=== PATIENT | female | born 1985 | race Caucasian/White ===

== ENCOUNTER 2018-01-05 15:14 | Observation (INO) ==
[2018-01-05] MEDS ORDERED: Acetaminophen 325 MG Tablet PO PRN (20:36)
[2018-01-05] MEDS ORDERED: Temazepam 15 MG Capsule PO PRN (20:36)
[2018-01-05] MEDS: Sod Chloride 0.9% Inj 1,000 ML IV.CONT SCH (21:22)
[2018-01-05 22:55] LABS: Reticulocyte Percent 4.1 % (0.4-3.0)
[2018-01-05 23:02] LABS: % Iron Saturation 3.1 % (20-50); Haptoglobin 116 mg/dL (30-200); Iron 11 mcg/dL (50-170); Lactate Dehydrogenase 106 U/L (84-246); Total Iron Binding Capacity 351 mcg/dL (250-450)
[2018-01-05 23:27] LABS: Ferritin 2 ng/mL (8-252); Vitamin B12 294 pg/mL (193-986)
[2018-01-06 09:21] LABS: Hematocrit 25.6 % (35.0-46.0); Hemoglobin 8.4 gm/dL (11.6-15.3)
--- NOTE | 2018-01-06 10:49 | P.HP ---
History of Present Illness Service: medicine Primary Care Physician: No Primary Care Physician Chief Complaint: vaginal bleeding History of Present Illness: 32 y/o female normally in good health states that she had her menses aprox 2 weeks ago. At the time her flow was increased and she had to change her tampons more frequently then normal, she said she was passing finger sized clots. Her menses lasts typically 4-5 days. She states aside from feelin a little more fatigued then normal she was at her baseline. This weekend however she started bleeding again , passing large clots, she felt weak and lightheaded and finally presented to the ER at [facility] where she was tachycardic and had a hgb of 6.9. Pelvic ultrasound done at that facility showed thickened abnormal hypervascular endometrium with prominent vasculature. The patient was transfered to [facility] for transfusion and further evaluation. This am she states she feels much better ambulating without shortness of breath or lightjheadedness, decreased heart rate, However in the early hours of the morning she had another heavy bleeding episode while in bed. She states she has never had this type of difficulty in the past, she does state that for one of her pregnancys she required transfusion as she did not stop bleeding after delivery. - Diagnosis (1) Symptomatic anemia (2) Vaginal bleeding Review of Systems All other systems reviewed negative except as stated in HPI [facility] - History History Provided By: Patient, Family Member - Medical History Medical History: Medical History (Last Reviewed 01/06/18 @ 10:56 by Barbara Dos Santos MD) Patient denies medical problems - Surgical History Surgical History: Surgical History (Last Reviewed 01/06/18 @ 10:57 by Barbara Dos Santos MD) H/O dilation and curettage - Social History I have reviewed the patient's Social History: Yes - Tobacco History Second Hand Smoke Exposure: No Tobacco Use In Past 30 Days: No Smoking Status: Never smoker - Alcohol History How Often Do You Have a Drink Containing Alcohol: Monthly or less - Substance Use History Substance History: No History of Abuse - Travel History Recent Travel in the [facility] Within the Last 8 Weeks: No Recent Travel Out of the Country Within the Last 8 Weeks: No Medications and Allergies Active Medications: Active Medications Acetaminophen (Tylenol) 650 mg PO Q4H PRN PRN Reason: Temp > 100.4 Ferrous Sulfate (Ferosul) 325 mg PO BID@1200,1700 IRISH Sodium Chloride (Ns Inj) 1,000 mls @ 100 mls/hr IV.CONT .Q10H IRISH Last Admin: 01/05/18 21:22 Dose: 100 mls/hr Ondansetron HCl (Zofran Inj) 4 mg IV.PUSH Q6H PRN PRN Reason: NAUSEA OR VOMITING Temazepam (Restoril) 15 mg PO HS PRN PRN Reason: INSOMNIA Last Admin: 01/06/18 01:18 Dose: 15 mg Allergies Allergy/AdvReac Type Severity Reaction Status Date / Time amoxicillin Allergy Hives Verified 01/05/18 15:26 Home Medications Medication Instructions Recorded Confirmed Type ibuprofen 400 mg PO Q4-6H PRN 01/05/18 01/05/18 History Exam Vital signs: Vital Signs 01/05/18 20:00 01/06/18 00:15 01/06/18 00:25 Temperature 99.7 F H 98.7 F Pulse Rate 129 H 107 H Respiratory Rate 16 18 Blood Pressure 126/78 90/52 L Pulse Oximetry 100 100 99 01/06/18 00:30 01/06/18 00:31 01/06/18 00:47 Temperature 99.0 F 98.7 F 98.0 F Pulse Rate 92 H 107 H 109 H Respiratory Rate 18 18 18 Blood Pressure 102/63 90/52 L 87/69 L Pulse Oximetry 99 01/06/18 03:43 01/06/18 04:18 01/06/18 04:29 Temperature 97.4 F L 98.0 F 98.0 F Pulse Rate 95 H 90 92 H Respiratory Rate 18 18 18 Blood Pressure 98/73 L 102/67 102/67 Pulse Oximetry 100 01/06/18 04:35 Temperature 97.0 F L Pulse Rate 93 H Respiratory Rate 18 Blood Pressure 95/69 L Pulse Oximetry 100 Intake & Output 01/05/18 01/06/18 01/06/18 18:59 06:59 18:59 Intake Total 400 / 400 800 / 800 Balance 400 / 400 800 / 800 Weight 45.4 kg Intake: Intake (Blood Product) Amt 0 / 0 400 / 400 Rbc As-3 Leukoreduced Unit 0 / 0 400 / 400 [id number] Rbc As-3 Leukoreduced Unit 0 / 0 [id number] Mass Transfusion Protocol 400 / 400 400 / 400 Other: # Voids 1 Date of Last Bowel Movement 01/05/18 Weight On Admission 45.7 kg - Constitutional no acute distress, thin - Routine HEENT Exam Head: Present: normocephalic, atraumatic Eye: Present: EOMI ENT: Present: mucous membranes moist - Routine Respiratory Exam Present: CTA bilaterally - Routine Cardiovascular Exam Present: RRR - Routine Abdominal Exam Present: soft, normoactive bowel sounds - Routine Extremities Exam Present: full ROM - Routine Skin Exam Present: intact - Routine Neurological Exam Present: alert, oriented X3 Results - Labs CBC & Chem 7: 01/06/18 16:35 Labs: Laboratory Results - last 24 hr 01/05/18 01/05/18 01/05/18 21:20 21:20 21:20 Hgb Hct Retic Count 4.1 H Absolute Retic 90.3 Haptoglobin 116 Iron 11 L TIBC 351 % Saturation 3.1 L Ferritin 2 L Lactate Dehydrogenase 106 Vitamin B12 294 Folate Greater than 20.0 H Blood Type O Positive Antibody Screen Negative MTS Gel Crossmatch See Detail Bld Prod Order Comment Y 01/06/18 09:05 Hgb 8.4 L Hct 25.6 L Retic Count Absolute Retic Haptoglobin Iron TIBC % Saturation Ferritin Lactate Dehydrogenase Vitamin B12 Folate Blood Type Antibody Screen MTS Gel Crossmatch Bld Prod Order Comment Caprini VTE Risk Assessment Caprini VTE Risk Assessment: No/Low Risk (score <= 1) Caprini Risk Assessment Model: Point Value = 1 Point Value = 2 Point Value = 3 Point Value = 5 Age 41-60 Minor surgery BMI > 25 kg/m2 Swollen legs Varicose veins or History of unexplained or recurrent spontaneous Oral contraceptives or hormone replacement Sepsis (< 1 month) Serious lung disease, including pneumonia (< 1 month) Abnormal pulmonary function Acute myocardial infarction Congestive heart failure (< 1 month) History of inflammatory bowel disease Medical patient at bed rest Age 61-74 Arthroscopic surgery Major open surgery (> 45 min) Laparoscopic surgery (> 45 min) Malignancy Confined to bed (> 72 hours) Immobilizing plaster cast Central venous access Age >= 75 History of VTE Family history of VTE Factor V Leiden Prothrombin [id number] Lupus anticoagulant Anticardiolipin antibodies Elevated serum homocysteine Heparin-induced thrombocytopenia Other congenital or acquired thrombophilia Stroke (< 1 month) Elective arthroplasty Hip, pelvis, or leg fracture Acute spinal cord injury (< 1 month) Prophylaxis Regimen: Total Risk Factor Score Risk Level Prophylaxis Regimen 0-1 Low Early ambulation 2 Moderate Order ONE of the following: *Sequential Compression Device (SCD) *Heparin 5000 units SQ BID 3-4 Higher Order ONE of the following medications: *Heparin 5000 units SQ TID *Enoxaparin/Lovenox 40 mg SQ daily (WT < 150 kg, CrCl > 30 mL/min) *Enoxaparin/Lovenox 30 mg SQ daily (WT < 150 kg, CrCl > 10-29 mL/min) *Enoxaparin/Lovenox 30 mg SQ BID (WT < 150 kg, CrCl > 30 mL/min) AND/OR *Sequential Compression Device (SCD) 5 or more Highest Order ONE of the following medications: *Heparin 5000 units SQ TID (Preferred with Epidurals) *Enoxaparin/Lovenox 40 mg SQ daily (WT < 150 kg, CrCl > 30 mL/min) *Enoxaparin/Lovenox 30 mg SQ daily (WT < 150 kg, CrCl > 10-29 mL/min) *Enoxaparin/Lovenox 30 mg SQ BID (WT < 150 kg, CrCl > 30 mL/min) AND *Sequential Compression Device (SCD) Assessment and Plan - Assessment (1) Symptomatic anemia Code(s): D64.9 - Anemia, unspecified Status: Acute Plan: she has been transfused 2 units of blood and feels improved, however in view of recurrent bleeding this am will monitor h/h, start on ferrous sulfate (2) Vaginal bleeding Code(s): N93.9 - Abnormal uterine and vaginal bleeding, unspecified Status: Acute Plan: [facility] Program Coordinator consult placed last pm unfortunately due to technical error did not go through. Will place consult again to box lidder suction worker.
--- NOTE | 2018-01-06 11:19 | P.HPOB ---
History of Present Illness Primary Care Physician: No Primary Care Physician Chief Complaint: vaginal bleeding History of Present Illness: 32 y/o female here with her sister who presented to the [facility] ED with sx of anemia after having heavy VB was found to have a Hb of 6.9 and tachycardic into 140s, she was transferred to [facility] and was given 2 units PRBCs and repeat Hb today 8.4, vitals have improved. At time of her presentation she states tat she had her typical monthly cycle 2 weeks ago, the amount of bleeding was heavier than what is normal for her and was passing larger clots. It stopped as anticipated like normal however it started again this weekend. Her cycles are routinely every month, last 4-5 days , not heavy or painful. At this time she states that her bleeding has improved , is like her normal cycle. She has been ambulatory without feeling dizzy. She states she is not sexually active with her , she is not using any contraception, she has never used contraception for control for cycle control in the past. She does not desire any more children. She has never been told she was anemic. However she does not have a primary care and has not seen a dictating transcribing machine servicer in over 5 years. She does state that she has a history of easy bruising, no nosebleeds or gingival bleeding. Only significant history of a hemorrhage that required a transfusion. US on 01/05/18: -Homogeneous uterus 9.3 x 4.4 x 6.7 cm. -Endometrial stripe 13 mm, appears hypervascular, hypoechoic areas within and appear to represent dilated vasculature -Ovaries are both visualized and normal-appearing, no free fluid in the pelvis. 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 OB Hx: 2005: , around 32-34 weeks, delivery of "Ana Paula" was in NICU for 1 month. States she had some bleeding within the first few days and required a D&C and transfusion. 2007: , labor, hospitalized but delivered "Mitchell" at term without complications. Surgical Hx: - 2005: D&C for hemorrhage Family Hx: Reports family history of anemia, no known bleeding disorders, denies any family history of any GROCERY CASHIER related cancers. 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 Lives in [place]. Denies any tobacco alcohol or drug use. Review of Systems All other systems reviewed negative except as stated in HPI [facility] - History History Provided By: Patient, Family Member - Medical History Medical History: Medical History (Last Reviewed 01/06/18 @ 10:56 by Barbara Dos Santos MD) Patient denies medical problems - Surgical History Surgical History: Surgical History (Last Reviewed 01/06/18 @ 10:57 by Barbara Dos Santos MD) H/O dilation and curettage - Tobacco History Second Hand Smoke Exposure: No Tobacco Use In Past 30 Days: No Smoking Status: Never smoker - Alcohol History How Often Do You Have a Drink Containing Alcohol: Monthly or less - Substance Use History Substance History: No History of Abuse - Travel History Recent Travel in the [facility] Within the Last 8 Weeks: No Recent Travel Out of the Country Within the Last 8 Weeks: No Medications and Allergies Active Medications: Active Medications Acetaminophen (Tylenol) 650 mg PO Q4H PRN PRN Reason: Temp > 100.4 Ferrous Sulfate (Ferosul) 325 mg PO BID@1200,1700 IRISH Sodium Chloride (Ns Inj) 1,000 mls @ 100 mls/hr IV.CONT .Q10H IRISH Last Admin: 01/05/18 21:22 Dose: 100 mls/hr Ondansetron HCl (Zofran Inj) 4 mg IV.PUSH Q6H PRN PRN Reason: NAUSEA OR VOMITING Temazepam (Restoril) 15 mg PO HS PRN PRN Reason: INSOMNIA Last Admin: 01/06/18 01:18 Dose: 15 mg Allergies Allergy/AdvReac Type Severity Reaction Status Date / Time amoxicillin Allergy Hives Verified 01/05/18 15:26 Home Medications Medication Instructions Recorded Confirmed Type ibuprofen 400 mg PO Q4-6H PRN 01/05/18 01/05/18 History Exam Vital signs: Vital Signs 01/05/18 20:00 01/06/18 00:15 01/06/18 00:25 Temperature 99.7 F H 98.7 F Pulse Rate 129 H 107 H Respiratory Rate 16 18 Blood Pressure 126/78 90/52 L Pulse Oximetry 100 100 99 01/06/18 00:30 01/06/18 00:31 01/06/18 00:47 Temperature 99.0 F 98.7 F 98.0 F Pulse Rate 92 H 107 H 109 H Respiratory Rate 18 18 18 Blood Pressure 102/63 90/52 L 87/69 L Pulse Oximetry 99 01/06/18 03:43 01/06/18 04:18 01/06/18 04:29 Temperature 97.4 F L 98.0 F 98.0 F Pulse Rate 95 H 90 92 H Respiratory Rate 18 18 18 Blood Pressure 98/73 L 102/67 102/67 Pulse Oximetry 100 01/06/18 04:35 Temperature 97.0 F L Pulse Rate 93 H Respiratory Rate 18 Blood Pressure 95/69 L Pulse Oximetry 100 Intake & Output 01/05/18 01/06/18 01/06/18 18:59 06:59 18:59 Intake Total 400 / 400 800 / 800 Balance 400 / 400 800 / 800 Weight 45.4 kg Intake: Intake (Blood Product) Amt 0 / 0 400 / 400 Rbc As-3 Leukoreduced Unit 0 / 0 400 / 400 [id number] Rbc As-3 Leukoreduced Unit 0 / 0 [id number] Mass Transfusion Protocol 400 / 400 400 / 400 Other: # Voids 1 Date of Last Bowel Movement 01/05/18 Weight On Admission 45.7 kg - Constitutional no acute distress - Routine HEENT Exam Head: Present: normocephalic Eye: Present: EOMI, PERRL ENT: Present: mucous membranes moist - Routine Neck Exam Present: supple, full ROM - Routine Respiratory Exam Present: CTA bilaterally - Routine Cardiovascular Exam Present: RRR - Routine Abdominal Exam Present: soft - Routine Extremities Exam Present: full ROM Comments: : Normal external female genitalia, sterile speculum inserted, approximately 10-20 cc of mixed liquid blood and clot seen, removed and cervix visualized normal appearing, no active bleeding from the cervical loss. On bimanual exam uterus 6 weeks mobile, nontender, no adnexal tenderness or masses palpable.. - Routine Skin Exam Present: normal turgor - Routine Neurological Exam Present: alert, oriented X3 Results - Labs CBC & Chem 7: 01/06/18 16:35 Labs: Laboratory Results - last 24 hr 01/05/18 01/05/18 01/05/18 21:20 21:20 21:20 Hgb Hct Retic Count 4.1 H Absolute Retic 90.3 Haptoglobin 116 Iron 11 L TIBC 351 % Saturation 3.1 L Ferritin 2 L Lactate Dehydrogenase 106 Vitamin B12 294 Folate Greater than 20.0 H Blood Type O Positive Antibody Screen Negative MTS Gel Crossmatch See Detail Bld Prod Order Comment Y 01/06/18 09:05 Hgb 8.4 L Hct 25.6 L Retic Count Absolute Retic Haptoglobin Iron TIBC % Saturation Ferritin Lactate Dehydrogenase Vitamin B12 Folate Blood Type Antibody Screen MTS Gel Crossmatch Bld Prod Order Comment Caprini VTE Risk Assessment Caprini VTE Risk Assessment: No/Low Risk (score <= 1) Caprini Risk Assessment Model: Point Value = 1 Point Value = 2 Point Value = 3 Point Value = 5 Age 41-60 Minor surgery BMI > 25 kg/m2 Swollen legs Varicose veins or History of unexplained or recurrent spontaneous Oral contraceptives or hormone replacement Sepsis (< 1 month) Serious lung disease, including pneumonia (< 1 month) Abnormal pulmonary function Acute myocardial infarction Congestive heart failure (< 1 month) History of inflammatory bowel disease Medical patient at bed rest Age 61-74 Arthroscopic surgery Major open surgery (> 45 min) Laparoscopic surgery (> 45 min) Malignancy Confined to bed (> 72 hours) Immobilizing plaster cast Central venous access Age >= 75 History of VTE Family history of VTE Factor V Leiden Prothrombin [id number] Lupus anticoagulant Anticardiolipin antibodies Elevated serum homocysteine Heparin-induced thrombocytopenia Other congenital or acquired thrombophilia Stroke (< 1 month) Elective arthroplasty Hip, pelvis, or leg fracture Acute spinal cord injury (< 1 month) Prophylaxis Regimen: Total Risk Factor Score Risk Level Prophylaxis Regimen 0-1 Low Early ambulation 2 Moderate Order ONE of the following: *Sequential Compression Device (SCD) *Heparin 5000 units SQ BID 3-4 Higher Order ONE of the following medications: *Heparin 5000 units SQ TID *Enoxaparin/Lovenox 40 mg SQ daily (WT < 150 kg, CrCl > 30 mL/min) *Enoxaparin/Lovenox 30 mg SQ daily (WT < 150 kg, CrCl > 10-29 mL/min) *Enoxaparin/Lovenox 30 mg SQ BID (WT < 150 kg, CrCl > 30 mL/min) AND/OR *Sequential Compression Device (SCD) 5 or more Highest Order ONE of the following medications: *Heparin 5000 units SQ TID (Preferred with Epidurals) *Enoxaparin/Lovenox 40 mg SQ daily (WT < 150 kg, CrCl > 30 mL/min) *Enoxaparin/Lovenox 30 mg SQ daily (WT < 150 kg, CrCl > 10-29 mL/min) *Enoxaparin/Lovenox 30 mg SQ BID (WT < 150 kg, CrCl > 30 mL/min) AND *Sequential Compression Device (SCD) Assessment and Plan - Plan 32-year-old female here today for abnormal and heavy menstrual bleeding/symptomatic anemia. 1. AUB / HMB / Fe def anemia: Most likely source of her anemia is her vaginal bleeding, unsure if she has had chronic anemia from her cycles, I have no baseline for comparison as she does not see anyone for routine care. Her cycles do not seem to be problematic for her on a monthly basis. Workup thus far significant for low fibrinogen but otherwise unremarkable other than her anemia. Hb electrophoresis, rectal Hemoccult VW and platelet function screen are pending and I will follow-up interpret with caution as an outpatient due to her transfusion prior to collection. Her ultrasound is significant for some atypical vascular architecture at the level of the endometrium, will repeat her ultrasound as an outpatient after her acute bleeding has improved in the next 1- 2 weeks. If still present will consider CTA of the pelvis to investigate for AVM. Currently she is clinically improved and bleeding is consistent with a cycle, will send patient home on an OCP taper (4x4, 3x3, ect) and then continue 1 pill daily until done with second pack, also with zofran for nausea. Discussed instructions for use and risk, benefits and side effects.
[2018-01-06 11:40] LABS: Thyroid Stimulating Hormone 2.8 uIU/mL (0.358-3.740)
[2018-01-06] MEDS ORDERED: ETHINYL ESTRADIOL PO SCH ×2 (12:00→15:00)
[2018-01-06] MEDS ORDERED: NORETHINDRONE PO SCH ×2 (12:00→15:00)
[2018-01-06] MEDS: Ferrous Sulfate 325 MG Tablet PO SCH ×2 (12:26→17:16)
[2018-01-06 12:43] VITALS: RESP 16; O2SAT 99
[2018-01-06] MEDS: Sod Chloride 0.9% Inj 1,000 ML IV.CONT SCH (13:25)
[2018-01-06 14:17] LABS: Free T4 (Free Thyroxine) 1.12 ng/dL (0.76-1.46)
[2018-01-06 16:47] VITALS: BP 113/72; PULSE 101; TEMP 97.2
[2018-01-06 16:53] LABS: Baso # (Auto) 0.1 th/mm3 (0.0-0.2); Baso % (Auto) 1.5 % (0.0-2.0); Eos % (Auto) 0.3 % (0.0-4.0); Hematocrit 28.3 % (35.0-46.0); Hemoglobin 9.2 gm/dL (11.6-15.3); Lymph # (Auto) 2.5 th/mm3 (1.0-4.8); Mean Corpuscular HGB Conc 32.6 % (32.0-36.0); Mean Corpuscular Hemoglobin 26.4 pg (27.0-34.0); Mean Platelet Volume 7.9 fL (7.0-11.0); Mono # (Auto) 0.6 th/mm3 (0.0-0.9); Mono % (Auto) 7.4 % (0.0-8.0); Neut # (Auto) 5.5 th/mm3 (1.8-7.7); Neut % (Auto) 61.8 % (16.0-70.0); Platelet Count 412 th/mm3 (150-450); Red Blood Count 3.49 mil/mm3 (4.00-5.30); Red Cell Distribution Width 15.4 % (11.6-17.2); White Blood Count 8.7 th/mm3 (4.0-11.0)
[2018-01-06] MEDS ORDERED: Estrogens Conjugated Inj 25 MG Vial IV.PUSH SCH (18:00)
== END 2018-01-06 18:47 | disposition home or self-care (01) ==
LOC: PHEDDLT 19:34 → PH3 19:34
PROVIDERS: ADMIT Legal Medicine; ATTEND Legal Medicine